=== PATIENT | female | born 1955 | race Caucasian/White ===

== ENCOUNTER 2017-11-06 11:25 | Outpatient (CLI) | payer OTHER ==
--- NOTE | 2017-11-06 13:38 | RAD ---
RIGHT RIBS THREE VIEWS: HISTORY: Right rib pain x3 months. FINDINGS: I do not see any signs of fracture or evidence of pneumothorax. IMPRESSION: Negative right ribs. POS: [facility]
== END 2017-11-06 11:26 | disposition home or self-care (01) ==
LOC: MADRAD 11:25
PROVIDERS: ATTEND Family Medicine
DX: R07.81 Pleurodynia (principal)

== ENCOUNTER 2017-12-06 13:10 | Outpatient (CLI) | payer OTHER | END 2017-12-06 13:11 | disposition home or self-care (01) | LOC: MADLABBHPM 13:10 | PROVIDERS: ATTEND Family Medicine | DX: C56.9 Malignant neoplasm of unspecified ovary (principal) | CPT/HCPCS: 36415; 86304 ==

== ENCOUNTER 2018-05-21 10:35 | Outpatient (CLI) | payer OTHER | END 2018-05-21 10:36 | disposition home or self-care (01) | LOC: MADLABBHPM 10:35 | PROVIDERS: ATTEND Family Medicine | DX: C56.9 Malignant neoplasm of unspecified ovary (principal) | CPT/HCPCS: 36415; 86304 ==

== ENCOUNTER 2018-12-08 10:16 | Outpatient (CLI) | payer OTHER ==
[2018-12-08 22:24] LABS: Follow-up Chemistry Comp? YES; Follow-up Result - Chemistry REPORT FAXED
== END 2018-12-08 10:17 | disposition home or self-care (01) ==
LOC: MADLABBHPM 10:16
PROVIDERS: ATTEND Family Medicine
DX: C56.9 Malignant neoplasm of unspecified ovary (principal)
CPT/HCPCS: 36415; 86304